=== PATIENT | female | born 1990 | race Caucasian/White ===

== ENCOUNTER 2024-01-03 14:47 | Emergency (ER) | payer OTHER, SELFPAY ==
--- NOTE | ~2024-01-03 | US_ITS ---
EXAMINATION: OBSTETRIC ULTRASOUND - SECOND TRIMESTER CLINICAL INFORMATION: Trauma, 20 weeks COMPARISON: None TECHNIQUE: Transabdominal imaging of the uterus was performed utilizing mata scale and color doppler technique, with m-mode imaging. FINDINGS: Single live intrauterine fetus in the breech position with cardiac motion detected at 152 bpm. movement is present. Amniotic fluid index was not measured limiting evaluation however amniotic fluid appears grossly within normal limits as visualized. Placenta is posterior. Where imaged the placenta appears unremarkable. There is no documentation of the position of the placental edge with respect to the cervix or color Doppler imaging applied to the cervix to evaluate for vasa previa or placenta previa. No perigestational hemorrhage. The cervix was obscured by shadowing, limiting assessment for cervical length and anatomy. anatomy was not evaluated and biometry was only performed on the femoral length, limiting assessment. Femur length: 3.2 cm corresponding to gestational age of 20 weeks. US/US OB limited IMPRESSION: * Markedly limited exam, with the above described limitations including lack of documentation of NOEMI, lack of evaluation for placenta previa or vasa previa, obscuration of the cervix, and lack of documentation of anatomy and biometry. Single living intrauterine gestation in breech position with cardiac motion detected at 152 bpm and motion present, with the above described limitations. Where imaged the placenta appears unremarkable. No perigestational hemorrhage. Recommend attention on 20 week anatomy scan to address the described limitations. * Based on the only biometric measurement obtained, the femoral length, gestational age corresponds to 20 weeks which would be size equal to reported dates, however the lack of comprehensive biometry limits evaluation of gestational age. Electronically signed by: Radha Martinez MD 01/03/2024 05:44 PM EDT
[2024-01-03 15:34] VITALS: BP 178/96; PULSE 118; RESP 16; TEMP 36.9; O2SAT 98; BMI 34.4
--- NOTE | 2024-01-03 15:43 | ED_ITS ---
HPI - General Adult General Chief complaint: Abdominal Pain Stated complaint: Hit in stomach yesterday - Time Seen by Provider: 01/03/24 17:14 Source: patient Mode of arrival: ambulatory Limitations: no limitations History of Present Illness ED Provider: Petty Gomez PA-C HPI narrative: 33 yo female currently 20w1d with ANDRES May 21 who presents to the ER for evaluation of an injury to her abdomen that occurred last evening at 19:00. She states she was at home, trying to gather a garden hose when she pulled hard, the metal portion of the end of the hose hit her directly in the abdominal wall in the left lower portion. Today she woke up with bruising to the area with some tenderness. She denies any cramping or vaginal bleeding. Patient is from [place] and arrived here today on a plane. She called her OB to tell her about the event who advised her to come to the emergency room for further evaluation and treatment. On arrival to the ER patient was found to be hypertensive to 178/96 with a heart rate of 118. Repeat blood pressure 151/78. complaint: Trauma to the abdominal wall Onset (ago): hour(s) (22) Location: abdomen Radiation: non-radiation Severity: mild Pain Consistency: now resolved Relieving factors: none Exacerbating factors: none Associated symptoms: denies other symptoms Treatments prior to arrival: none Related Data Allergies Allergy/AdvReac Type Severity Reaction Status Date / Time No Known Allergies Allergy Verified 01/03/24 15:35 Review of Systems 2 Review of Systems: Yes all other systems are reviewed and are negative PMFSH Social History Social History Smoked in Last 30 Days: No Use of substances other than those prescribed or required for medical reasons: No Advance Directives: No Advance Directives Information Provided: Yes Do you have a plan to hurt others: No Plan Patient : Yes Physical Exam ED Vital Signs: Vital Signs - 24 hr 01/03/24 15:34 01/03/24 16:03 01/03/24 17:21 Temperature 98.5 F 99.2 F Pulse Rate 118 H 106 H 95 Respiratory Rate 16 22 H Blood Pressure 178/96 H 176/95 H 151/78 H Pulse Oximetry 98 99 Oxygen Delivery Method Room Air Room Air 01/03/24 18:35 Temperature 99.2 F Pulse Rate 104 H Respiratory Rate 20 Blood Pressure 165/87 H Pulse Oximetry 99 Oxygen Delivery Method Room Air BMI result Body Mass Index 34.4 Appearance: Alert. Oriented X3. No acute distress. HEENT: normal external inspection Neck: Normal inspection. CVS: Normal heart rate and rhythm. Pulses normal. Respiratory: No respiratory distress. Breath sounds normal. Abdomen: Gravid uterus palpable above the level of the umbilicus, there is a proximally 5 cm area of purplish ecchymosis in the left lower quadrant that is minimally tender, no palpable hematoma, normal active +BS x4. pelvic deferred Skin: Skin warm and dry. Normal skin color. Normal skin turgor. No rashes. Extremities: No lower extremity edema. No joint swelling. Neuro/psych: Oriented X 3. No motor deficit. No sensory deficit. CN II-XII intact. Normal speech and cognition. Course Course Course Narrative: RME: Done by GOLDEN Byrd. 33-year-old female 20 weeks presents to the ED for evaluation due to being hit in the stomach by a holes yesterday. Her OBGYN want her to be evaluated. Patient denies any vaginal bleeding or cramping since incident. Positive for small left lower quadrant bruise. Lower extremities negative for swelling or pitting edema. Patient hypertensive. Labs ordered an ultrasound. Will discuss with charge nurse to bring patient in for evaluation for possible preeclampsia. Medical Decision Making Medical Decision Making MDM Narrative: 33-year-old female with estimated delivery date of May 21 who is currently 29 weeks 1 day presents to the ER for evaluation of abdominal bruising after a garden hose hit her in the abdominal wall yesterday evening. No vaginal bleeding, leakage of fluid, or cramping. Patient was found to be significantly hypertensive on arrival with no history of hypertension this . She has no headache or vision changes. No protein in her urine. Repeat blood pressure remained elevated in the 170s over 90s. She admits to anxiety. Call to discuss the patient with OB at [facility], they are recommending transfer to [facility] evaluation and possible admission. They are recommending 20 mg of IV labetalol if sustained blood pressure over 160/110. Repeat blood pressure at 1730 is 151/78. Hold off on IV antihypertensive medications for now. Patient updated on plan of care to transfer to [facility] for further evaluation and treatment. She is in agreement. Stable for transfer in private car. Patient and are agreeable with plan. Differential Diagnosis Differential Diagnoses: The differential diagnosis associated with the presentation includes Abdominal wall hematoma, rectus sheath hematoma, gestational hypertension, anxiety, preeclampsia Admission/Observation Consideration of admission/observation: Escalation of care including admission/observation considered Consult Healthcare Provider Management of the patient was discussed with: Vendor Representatives OB at [facility] Lab Data MDM Lab Attestation statement: I reviewed the patient's lab results. Mild leukocytosis with white blood cell count 12.6 01/03/24 15:57 01/03/24 15:57 Labs: Lab Results 01/03/24 01/03/24 Range/Units 15:57 16:00 WBC 12.6 H (4.8-10.8) X10*3/uL RBC 4.36 (4.20-5.50) X10*6/uL Hgb 13.3 (12.0-16.0) g/dl Hct 38.9 (37.0-47.0) % MCV 89.2 (80.0-98.0) fL MCH 30.5 (27.0-33.0) pg MCHC 34.2 (31.0-35.0) g/dl RDW 12.9 (11.0-16.0) % Plt Count 268 (160-400) X10*3/uL MPV 9.4 (9.4-12.3) fL Immature Gran % (Auto) 0.7 H (0.0-0.4) % Neut % (Auto) 73.9 H (45-73) % Lymph % (Auto) 17.0 L (20-40) % Jones % (Auto) 7.6 (2-11) % Eos % (Auto) 0.4 (0-4) % Baso % (Auto) 0.4 (0-2) % Lymph # (Auto) 2.1 (1.2-4.9) X10*3/uL Jones # (Auto) 1.0 (0.1-1.2) X10*3/uL Eos # (Auto) 0.1 (0.0-0.4) X10*3/uL Baso # (Auto) 0.1 (0.0-0.2) X10*3/uL Abs Immat Gran (auto) 0.09 H (0.00-0.03) X10*3/uL Absolute Neuts (auto) 9.3 H (2.0-8.3) x10*3/uL Absolute Nucleated RBC 0.000 (0.0-0.012) X10*3/uL Nucleated RBC % (auto) 0.0 (0.0-0.2) /100WBC PT 12.0 (11.1-13.3) SEC INR 1.0 (0.9-1.1) APTT 29.5 (26.0-36.8) SEC Sodium 138 (135-145) mmol/L Potassium 3.9 (3.3-5.1) mmol/L Chloride 108 (96-108) mmol/L Carbon Dioxide 20 L (22-29) mmol/L Anion Gap 14 (12-20) BUN 6 L (9-16) mg/dL Creatinine 0.66 (0.5-1.4) mg/dL Estim Creat Clear Calc 120.4 Estimated GFR > 60 Random Glucose 81 (60-115) mg/dL Calcium 9.0 (8.4-10.2) mg/dL Total Bilirubin 0.4 (0.0-1.0) mg/dL AST 26 (5-31) U/L ALT 30 (0-31) U/L Alkaline Phosphatase 92 (39-117) U/L Total Protein 7.0 (6.5-8.0) g/dL Albumin 3.7 (3.5-5.0) g/dL Beta HCG, Quant 91675 mIU/mL Urine Color Yellow Urine Appearance Clear Urine pH 7.0 (5.0-9.0) Ur Specific Tyler 1.020 (1.005-1.025) Urine Protein Negative (Neg-Trace) mg/dL Urine Glucose (UA) Negative (Negative) mg/dL Urine Ketones Trace (Negative) mg/dL Urine Blood Negative (Negative) Urine Nitrite Negative (Negative) Ur Leukocyte Esterase Small (1+) H (Negative) Urine RBC 0-2 (0-2) /HPF Urine WBC 0-5 (0-5) /HPF Ur Squamous Epith Cells 3-5 (0-2) /HPF Urine Bacteria 1+ (None Seen) Hyaline Casts 0-2 (0-2) /LPF Independent Interpretation I performed an independent interpretation of an: Ultrasound Interpretation: heart tones 152, breech presentation, no appreciated abdominal wall hematoma Radiology Impression Discussion of test interpretation with radiology: I have reviewed the radiologist's reading. Radiologist Impression: EXAMINATION: OBSTETRIC ULTRASOUND - SECOND TRIMESTER CLINICAL INFORMATION: Trauma, 20 weeks COMPARISON: None TECHNIQUE: Transabdominal imaging of the uterus was performed utilizing mata scale and color doppler technique, with m-mode imaging. FINDINGS: Single live intrauterine fetus in the breech position with cardiac motion detected at 152 bpm. movement is present. Amniotic fluid index was not measured limiting evaluation however amniotic fluid appears grossly within normal limits as visualized. Placenta is posterior. Where imaged the placenta appears unremarkable. There is no documentation of the position of the placental edge with respect to the cervix or color Doppler imaging applied to the cervix to evaluate for vasa previa or placenta previa. No perigestational hemorrhage. The cervix was obscured by shadowing, limiting assessment for cervical length and anatomy. anatomy was not evaluated and biometry was only performed on the femoral length, limiting assessment. Femur length: 3.2 cm corresponding to gestational age of 20 weeks. US/US OB limited IMPRESSION: * Markedly limited exam, with the above described limitations including lack of documentation of NOEMI, lack of evaluation for placenta previa or vasa previa, obscuration of the cervix, and lack of documentation of anatomy and biometry. Single living intrauterine gestation in breech position with cardiac motion detected at 152 bpm and motion present, with the above described limitations. Where imaged the placenta appears unremarkable. No perigestational hemorrhage. Recommend attention on 20 week anatomy scan to address the described limitations. * Based on the only biometric measurement obtained, the femoral length, gestational age corresponds to 20 weeks which would be size equal to reported dates, however the lack of comprehensive biometry limits evaluation of gestational age. Independent Historian Clinical information obtained from an independent historian. History obtained from or confirmed by: Spouse Prescription Management I considered prescription management with: Other (Antihypertensive) Chronic Conditions Patient?s care impacted by: Other (Current ) Social Determinants Patient?s care significantly limited by Social Determinants of Health including: Other Social Determinant of Health Critical Care Time Critical Care Time Critical Care Time: Yes Total Critical Care Time: 33 Attestation: I have personally provided critical care time exclusive of time spent on separately billable procedures. Time includes review of lab data, radiology results, discussion with consultants, and monitoring for potential decompensation. Intervention performed as documented. Discharge Plan Discharge Clinical Impression: Hypertension affecting in second trimester Traumatic ecchymosis of abdominal wall Qualifiers: Encounter type: initial encounter Qualified Code(s): S30.1XXA - Contusion of abdominal wall, initial encounter Patient Disposition: Xfer Acute Care Hospital Transfer Details: [facility] Interventions: Acute Care Transfer Worksheet (ED) Last Done: 01/03/24 18:35 Discharge Date/Time: 01/03/24 18:38 Print Language: Tongan
[2024-01-03 16:03] VITALS: BP 176/95; PULSE 106; RESP 22; TEMP 37.3; O2SAT 99
[2024-01-03 16:03] LABS: MANUAL DIFF FLAG NO
[2024-01-03 16:06] LABS: Appearance Urine Clear; Color Urine Yellow; Glucose Urine UA Negative (Negative); Leukocyte Esterase Urine Small (1+) (Negative); Nitrite Urine Negative (Negative); UMIC TRIGGER UACC YES; Urine Blood Negative (Negative); Urine Ketones Trace mg/dL (Negative); Urine Protein Negative (Neg-Trace)
[2024-01-03 16:14] LABS: Partial Thromboplastin Time 29.5 SEC (26.0-36.8)
[2024-01-03 16:17] LABS: Bacteria Urine 1+ (None Seen); Hyaline Casts Urine 0-2 /LPF (0-2); RBC Urine 0-2 /HPF (0-2); UACC Culture Trigger YES; WBC Urine 0-5 /HPF (0-5)
[2024-01-03 16:23] LABS: Basophils Absolute Auto 0.1 X10*3/uL (0.0-0.2); Basophils Percent Auto 0.4 % (0-2); Eosinophils Absolute Auto 0.1 X10*3/uL (0.0-0.4); Eosinophils Percent Auto 0.4 % (0-4); Hematocrit 38.9 % (37.0-47.0); Hemoglobin 13.3 g/dl (12.0-16.0); Imm Gran Abs Auto 0.09 X10*3/uL (0.00-0.03); Imm Gran Pct Auto 0.7 % (0.0-0.4); Lymphocytes Absolute Auto 2.1 X10*3/uL (1.2-4.9); Mean Corpuscular HGB Conc 34.2 g/dl (31.0-35.0); Mean Corpuscular Hemoglobin 30.5 pg (27.0-33.0); Mean Corpuscular Volume 89.2 fL (80.0-98.0); Mean Platelet Volume 9.4 fL (9.4-12.3); Monocytes Percent Auto 7.6 % (2-11); Neutrophils Absolute Auto 9.3 x10*3/uL (2.0-8.3); Neutrophils Percent Auto 73.9 % (45-73); Platelet Count 268 X10*3/uL (160-400); Red Blood Count 4.36 X10*6/uL (4.20-5.50); Red Cell Distribution Width 12.9 % (11.0-16.0); White Blood Count 12.6 X10*3/uL (4.8-10.8)
[2024-01-03 16:26] LABS: Alanine Aminotransferase 30 U/L (0-31); Albumin Level 3.7 g/dL (3.5-5.0); Alkaline Phosphatase 92 U/L (39-117); Anion Gap 14 (12-20); Aspartate Amino Transferase 26 U/L (5-31); Bilirubin Total 0.4 mg/dL (0.0-1.0); Blood Urea Nitrogen 6 mg/dL (9-16); Carbon Dioxide 20 mmol/L (22-29); Chloride 108 mmol/L (96-108); Creatinine Clr Calc Pharmacy 120.4; Estimated Glomerular Filt Rate > 60; Glucose Random 81 mg/dL (60-115); Potassium 3.9 mmol/L (3.3-5.1); Sodium 138 mmol/L (135-145)
[2024-01-03 17:21] VITALS: BP 151/78; PULSE 95
[2024-01-03 18:35] VITALS: BP 165/87; PULSE 104; RESP 20; TEMP 37.3; O2SAT 99
== END 2024-01-03 18:38 | disposition short-term general hospital (02) ==
PROVIDERS: Physician Assistant; Emergency Provider Internal Medicine
DX: O16.2 Unspecified maternal hypertension, second trimester (principal); O26.892 Other specified pregnancy related conditions, second trimester; Z3A.20 20 weeks gestation of pregnancy; Z79.899 Other long term (current) drug therapy
CPT/HCPCS: 36415; 76815; 80053; 81001; 84702; 85025; 85610; 85730; 87086; 99285